=== PATIENT | female | born 1970 | race Caucasian/White ===

== ENCOUNTER 2024-08-07 12:15 | Outpatient (OUT) | payer MEDICAID, SELFPAY ==
[2024-08-07 12:42] LABS: Basophils Absolute Auto 0.1 10^3/uL (0.0-0.1); Eosinophils Absolute Auto 0.1 10^3/uL (0.0-0.7); Eosinophils Percent Auto 1.3 % (0.9-7.0); Hematocrit 40.7 % (36.0-48.0); Hemoglobin 13.1 g/dL (12.0-16.0); Immature Granulocytes Abs Auto 0.01 10^3/uL (0.00-0.03); Immature Granulocytes Pct Auto 0.1 % (0.0-0.5); Lymphocytes Absolute Auto 2.8 10^3/uL (1.2-3.8); Lymphocytes Percent Auto 33.9 % (20.5-60.0); Mean Corpuscular HGB Conc 32.2 g/dL (29.9-35.2); Mean Corpuscular Volume 93.3 fL (81.0-99.0); Monocytes Absolute Auto 0.8 10^3/uL (0.3-0.8); Monocytes Percent Auto 9.5 % (1.7-12.0); Neutrophils Absolute Auto 4.5 10^3/uL (1.4-6.5); Neutrophils Percent Auto 54.2 % (43.0-75.0); Platelet Count 323 10^3/uL (150-450); Red Blood Count 4.36 10^6/uL (4.20-5.40); Red Cell Distribution Width 13.2 % (11.0-15.0); White Blood Count 8.3 10^3/uL (4.0-11.0)
[2024-08-07 12:57] LABS: Estimated Average Glucose 103 mg/dL; Glycohemoglobin A1C 5.2 % (4.5-6.2)
[2024-08-07 13:06] LABS: Alanine Aminotransferase 12 U/L (14-59); Albumin Globulin Ratio 1.3; Alkaline Phosphatase 71 U/L (46-116); Anion Gap 11.6; Aspartate Amino Transferase 8 U/L (15-37); BUN Creatinine Ratio 16.7; Bilirubin Total 0.3 mg/dL (0.2-1.0); Calcium 9.3 mg/dL (8.5-10.1); Carbon Dioxide 26.7 mmol/L (21.0-32.0); Chloride 106 mmol/L (98-107); Chol HDL Ratio 3.7; Cholesterol 186 mg/dL (<=200); Estimated GFR (African America >60 (>=60 mL/min/1.73m^2); Estimated GFR (Non-African Ame >60 (>=60 mL/min/1.73m^2); Free T3 2.72 pg/mL (2.18-3.98); Globulin 3.1 g/dL; Glucose 91 mg/dL (74-106); HDL Cholesterol 50 mg/dL (40-60); Potassium 3.3 mmol/L (3.5-5.1); Sodium 141 mmol/L (136-145); Thyroid Stimulating Hormone 1.385 uIU/mL (0.358-3.740); Total Protein 7.1 g/dL (6.4-8.2); Triglycerides 145 mg/dL (<=150)
== END 2024-08-07 12:16 | disposition home or self-care (01) ==
LOC: LAB 12:19
PROVIDERS: PCP Family Medicine; Visit Provider Family Medicine
DX: Z00.00 Encounter for general adult medical examination without abnormal findings (principal)
CPT/HCPCS: 36415; 80053; 80061; 83036; 83540; 84436; 84443; 84481; 85025

== ENCOUNTER 2024-08-11 16:08 | Outpatient (REF) | payer MEDICAID, SELFPAY ==
--- OUTSIDE RECORDS SUMMARY | 2024-08-11 16:12 | XMS_ITS | CCD ---
Author Organization [facility] [employer] [facility] Care Team Providers Care Clean Up Helper Banquet Name Role Phone VANNESA ENGLAND Admitting Unavailable VANNESA ENGLAND Attending Unavailable VANNESA ENGLAND Consulting Unavailable Problems Problem Classification Problem Date Documented Da te Episodic/Chronic Chronic obstructive pulmonary disease and bronchiectasis (1 source) Chronic obstructive pulmonary disease with (acute) exacerbation; Translations: [COPD WITH ACUTE EXACERBATION] Onset: 02-15-2020 Chronic Immunizations and screening for infectious disease (4 sources) Encounter for screening for other viral diseases; Translations: [ENC SCREENING FOR OTH VIRAL DZ] Onset: 02-13-2020 Episodic Results Test Name Value Interpretation Reference Range Facil ity COVID-19 PCRon 02-15-2020 SARS-CoV-2, MARTA Not Detected Normal Not Detected [facility] Comment on above: Result Comment: This test was developed and its performance characteristics determined by [facility]. This test has not been FDA cleared or approved. This test has been authorized by FDA under an Emergency Use Authorization (EUA). This test is only authorized for the duration of time the declaration that circumstances exist justifying the authorization of the emergency use of in vitro diagnostic tests for detection of SARS-CoV-2 virus and/or diagnosis of COVID-19 infection under section 564(b)(1) of the Act, 21 U.S.C. 360bbb-3(b)(1), unless the authorization is terminated or revoked sooner. When diagnostic testing is negative, the possibility of a false negative result should be considered in the context of a patient's recent exposures and the presence of clinical signs and symptoms consistent with COVID-19. An individual without symptoms of COVID-19 and who is not shedding SARS-CoV-2 virus would expect to have a negative (not detected) result in this assay. Performed By: #### C VDPCR #### [facility] [address] [place] [address] Selvin Awad Encounters Encounter Date Encounter Type Care Provider Facility Start: 02-13-2020 End: 02-14-2020 Patient encounter procedure VANNESA ENGLAND Facility:[facility] Payers Date Payer Category Payer Unknown [id number] 1970 Unknown [id number] Summary Purpose Family History No Family History Records Found Advance Directives No Advanced Directives Records Found Additional Source Comments INFORMATION SOURCE (unrecogn ized section and content) DATE CREATED AUTHOR 03/08/[address] [facility] FOR RECORDS PERTAINING TO PATIENTS WHO ARE OR HAVE BEEN ENROLLED IN A CHEMICAL DEPENDENCY/SUBSTANCEABUSE PROGRAM, SOME INFORMATION MAY BE OMITTED. This clinical summary was aggregated from multiple sources. Caution should be exercised in using it in the provision of clinical care. This summary normalizes information from multiple sources, and as a consequence, information in this document may materially change the coding, format and clinical context of patient data. In addition, data may be omitted in some cases. CLINICAL DECISIONS SHOULD BE BASED ON THE PRIMARY CLINICAL RECORDS. [facility] [employer] provides no warranty or guarantee of the accuracy or completeness of information in this document.
[2024-08-11 19:56] LABS: Internal Control Within Normal Limits; Occult Blood Negative
== END 2024-08-11 16:09 | disposition home or self-care (01) ==
LOC: LAB 16:08
PROVIDERS: PCP Family Medicine; Visit Provider Family Medicine
DX: Z00.00 Encounter for general adult medical examination without abnormal findings (principal)
CPT/HCPCS: G0328